=== PATIENT | male | born 1930 | race Caucasian/White ===

== ENCOUNTER → 2016-11-10 | Outpatient (CLI) | payer MEDICARE ==
[~2016-11-10] MED LIST: ASPI81 PO; CLOP75 PO; METO25 PO; SIMV20 PO
[2016-11-10 13:54] LABS: HDL CHOLESTEROL 57.1 MG/DL (40.0-60.0)
== END ==
LOC: PLAB 09:10
PROVIDERS: ATTEND Internal Medicine Cardiovascular Disease
DX: E78.5 Hyperlipidemia, unspecified (principal)
CPT/HCPCS: 36415; 80061

== ENCOUNTER → 2017-02-28 | Outpatient (CLI) | payer MEDICARE ==
[2017-02-28 13:18] LABS: ANION GAP 6 MEQ/L (5-15); AST (GOT) 14 U/L (15-37); BICARBONATE 27.6 MEQ/L (21.0-32.0); BLOOD UREA NITROGEN 22 MG/DL (7-18); CHLORIDE 109 MEQ/L (98-107); GLOMERULAR FILTRATION RATE 53 ML/MIN (>89); GLUCOSE,FASTING 106 MG/DL (74-99); POTASSIUM 4.4 MEQ/L (3.5-5.1); SODIUM (NA) 143 MEQ/L (136-145)
[2017-02-28 13:32] LABS: ALKALINE PHOSPHATASE 63 U/L (45-117); ALT (GPT) 23 U/L (12-78); HDL CHOLESTEROL 49.4 MG/DL (40.0-60.0); LDL CHOLESTEROL 92 MG/DL (0-99); TOTAL BILIRUBIN ADULT 0.8 MG/DL (0.2-1.0)
== END ==
LOC: PLAB 09:33
PROVIDERS: ATTEND Internal Medicine
DX: E78.00 Pure hypercholesterolemia, unspecified (principal); I25.10 Atherosclerotic heart disease of native coronary artery without angina pectoris
CPT/HCPCS: 36415; 80053; 80061; 84443

== ENCOUNTER 2017-05-28 19:30 | Emergency (ER) | payer OTHER, MEDICARE ==
[~2017-05-28] VITALS: Ht 200.7 cm; Wt 70.0 kg
[2017-05-28] MEDS ORDERED: PLAV75TA29 PO (19:37)
[2017-05-28] MEDS ORDERED: METO25TA3 PO (19:38)
[2017-05-28] MEDS ORDERED: ZOCO20TA PO (19:38)
[2017-05-28 19:39] VITALS: BP 129/75; PULSE 57; RESP 18; TEMP 98.1; O2SAT 98
[2017-05-28] MEDS ORDERED: ASPI325T PO (19:39)
[2017-05-28] MEDS ORDERED: SODIUM CHLORIDE 0.9% FLUSH 10 ML FLUSH IVF PRN (19:45)
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
[2017-05-28 19:53] VITALS: O2SAT 98
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
[2017-05-28 20:09] LABS: AUTOMATED NEUTROPHIL # 4.5 TH/MM3 (1.8-7.7); BASOPHIL % 0.3 % (0.0-2.0); EOSINOPHIL # 0.1 TH/MM3 (0-0.4); EOSINOPHIL % 1.3 % (0.0-4.0); HEMATOCRIT 40.2 % (39.0-51.0); HEMO FLAGS DIFF FINAL; LYMPH % 22.3 % (9.0-44.0); LYMPHOCYTE # 1.5 TH/MM3 (1.0-4.8); MEAN CELL VOLUME 92.4 FL (80.0-100.0); MEAN CORPUSCULAR HEMOGLOBIN 30.5 PG (27.0-34.0); NEUT % 67.1 % (16.0-70.0); PLATELET COUNT 206 TH/MM3 (150-450); RED BLOOD COUNT 4.35 MIL/MM3 (4.50-5.90); RED CELL DISTRIBUTION WIDTH 14.6 % (11.6-17.2); WHITE BLOOD COUNT 6.6 TH/MM3 (4.0-11.0)
[2017-05-28 20:10] LABS: APTT (PATIENT) 25.1 SEC (24.3-30.1)
[2017-05-28 20:13] LABS: ANION GAP 6 MEQ/L (5-15); BICARBONATE 25.7 MEQ/L (21.0-32.0); BLOOD UREA NITROGEN 22 MG/DL (7-18); CHLORIDE 110 MEQ/L (98-107); GLOMERULAR FILTRATION RATE 57 ML/MIN (>89); MAGNESIUM 2.1 MG/DL (1.5-2.5); POTASSIUM 4.1 MEQ/L (3.5-5.1); SODIUM (NA) 142 MEQ/L (136-145)
[2017-05-28 20:38] LABS: CREATINE KINASE 80 U/L (39-308)
--- NOTE | 2017-05-29 09:20 | EKG ---
Date Performed: 05/28/2017 Time Performed: 19:41:41 PTAGE: 86 years EKG: SINUS BRADYCARDIA BORDERLINE ECG PREVIOUS TRACING : 06/21/2008 06.16 DOCTOR: Simone Arias Interpretating Date/Time 05/29/2017 09:19:05
== END 2017-05-28 21:13 | disposition home or self-care (01) ==
LOC: NEPE 19:30
DX: R07.9 Chest pain, unspecified (principal); R00.1 Bradycardia, unspecified; I25.10 Atherosclerotic heart disease of native coronary artery without angina pectoris; V43.52XA Car driver injured in collision with other type car in traffic accident, initial encounter; Z95.5 Presence of coronary angioplasty implant and graft
CPT/HCPCS: 71010; 80048; 82550; 83735; 84484; 85025; 85610; 85730; 93005; 99285

== ENCOUNTER → 2017-07-14 | Outpatient (CLI) | payer MEDICARE ==
[~2017-07-14] MED LIST changes: +ASPI325T PO; -ASPI81 PO; -CLOP75 PO; -METO25 PO; +METO25TA3 PO; +PLAV75TA29 PO; -SIMV20 PO; +ZOCO20TA PO
[2017-07-14 14:13] LABS: GLUCOSE,FASTING 101 MG/DL (74-99)
[2017-07-14 14:43] LABS: FREE T4 0.85 NG/DL (0.76-1.46); TRANSFERRIN IRON PROFILE 234 MG/DL (200-360)
[2017-07-16 09:03] LABS: VITAMIN B2 (RIBOFLAVIN) 9 mcg/L (1-19)
[2017-07-16 23:51] LABS: ZINC 75 mcg/dL (60-130)
== END ==
LOC: PLAB 09:24
DX: R43.2 Parageusia (principal); H61.23 Impacted cerumen, bilateral
CPT/HCPCS: 36415; 82607; 82746; 82947; 83540; 83550; 84207; 84252; 84425; 84439; 84443; 84630

== ENCOUNTER → 2017-09-01 | Outpatient (CLI) | payer MEDICARE ==
[~2017-09-01] MED LIST changes: +ASPI-183 PO; -ASPI325T PO
[2017-09-01 11:58] LABS: AUTOMATED NEUTROPHIL # 4.2 TH/MM3 (1.8-7.7); BASOPHIL % 0.4 % (0.0-2.0); EOSINOPHIL # 0.1 TH/MM3 (0-0.4); EOSINOPHIL % 1.3 % (0.0-4.0); HEMATOCRIT 41.5 % (39.0-51.0); HEMO FLAGS DIFF FINAL; LYMPH % 17.8 % (9.0-44.0); MEAN CELL VOLUME 92.8 FL (80.0-100.0); MEAN CORPUSCULAR HEMOGLOBIN 31.8 PG (27.0-34.0); MEAN CORPUSCULAR HGB CONC 34.2 % (32.0-36.0); MONO % 7.4 % (0.0-8.0); NEUT % 73.1 % (16.0-70.0); PLATELET COUNT 156 TH/MM3 (150-450); RED BLOOD COUNT 4.47 MIL/MM3 (4.50-5.90); RED CELL DISTRIBUTION WIDTH 14.1 % (11.6-17.2); WHITE BLOOD COUNT 5.8 TH/MM3 (4.0-11.0)
[2017-09-01 12:00] LABS: ANION GAP 4 MEQ/L (5-15); AST (GOT) 16 U/L (15-37); BICARBONATE 27.8 MEQ/L (21.0-32.0); BLOOD UREA NITROGEN 18 MG/DL (7-18); CHLORIDE 109 MEQ/L (98-107); GLOMERULAR FILTRATION RATE 56 ML/MIN (>89); GLUCOSE,FASTING 108 MG/DL (74-99); POTASSIUM 4.8 MEQ/L (3.5-5.1); SODIUM (NA) 141 MEQ/L (136-145)
[2017-09-01 12:11] LABS: ALKALINE PHOSPHATASE 68 U/L (45-117); ALT (GPT) 23 U/L (12-78); HDL CHOLESTEROL 53.1 MG/DL (40.0-60.0); LDL CHOLESTEROL 97 MG/DL (0-99); TOTAL BILIRUBIN ADULT 0.6 MG/DL (0.2-1.0)
[2017-09-01 13:36] LABS: BLOOD, URINE NEG (NEG); COMMENT (UR) CULT NOT INDICATED; CULTURE IF INDICATED CULT NOT INDICATED; GLUCOSE,URINE NEG (NEG); KETONE, URINE NEG (NEG); MUCUS URINE FEW /lpf (OCC); NITRITE,URINE NEG (NEG); PH, URINE 5.5 (5.0-8.5); URINE COLOR YELLOW (YELLW/STRAW)
== END ==
LOC: PLAB 08:49
PROVIDERS: ATTEND Internal Medicine
DX: E78.00 Pure hypercholesterolemia, unspecified (principal); I10 Essential (primary) hypertension; Z12.5 Encounter for screening for malignant neoplasm of prostate
CPT/HCPCS: 36415; 80053; 80061; 81001; 84443; 85025; G0103

== ENCOUNTER → 2018-03-06 | Outpatient (CLI) | payer MEDICARE ==
[2018-03-06 13:55] LABS: ALBUMIN 3.8 GM/DL (3.4-5.0); AST (GOT) 15 U/L (15-37); BICARBONATE 24.4 MEQ/L (21.0-32.0); BLOOD UREA NITROGEN 25 MG/DL (7-18); CALCIUM 8.5 MG/DL (8.5-10.1); CHLORIDE 111 MEQ/L (98-107); CHOLESTEROL 162 MG/DL (120-200); CREATININE 1.23 MG/DL (0.60-1.30); GLOMERULAR FILTRATION RATE 56 ML/MIN (>89); GLUCOSE,FASTING 103 MG/DL (74-99); SODIUM (NA) 145 MEQ/L (136-145); TRIGLYCERIDES 111 MG/DL (42-150)
[2018-03-06 14:00] LABS: ALKALINE PHOSPHATASE 62 U/L (45-117); ALT (GPT) 23 U/L (12-78); CHOLESTEROL/ HDL RATIO 3.15 RATIO; HDL CHOLESTEROL 51.4 MG/DL (40.0-60.0); LDL CHOLESTEROL 88 MG/DL (0-99); TOTAL BILIRUBIN ADULT 0.7 MG/DL (0.2-1.0); TOTAL PROTEIN 6.5 GM/DL (6.4-8.2)
== END ==
LOC: PLAB 09:57
PROVIDERS: ATTEND Internal Medicine
DX: E78.00 Pure hypercholesterolemia, unspecified (principal)
CPT/HCPCS: 36415; 80053; 80061